=== PATIENT | female | born 1955 | race Caucasian/White ===

== ENCOUNTER 2018-09-13 11:54 | Inpatient (IN) | payer BC ==
[~2018-09-13] VITALS: Ht 167.6 cm; Wt 78.1 kg
[2018-09-13] VITALS (14 sets, daily range): BP systolic 133–154; BP diastolic 65–99
[2018-09-13] MEDS ORDERED: normal saline 1000ML IV soln ONE (12:00)
--- NOTE | 2018-09-13 12:05 | NUR ---
Dr. Armstrong at bedside to keron pt.
[2018-09-13] MEDS ORDERED: aspirin 81mg tab.chew PO ONE (12:30)
[2018-09-13 12:44] LABS: BASOPHILS % (AUTO) 0.4 % (0-1); EOSINOPHILS # (AUTO) 0.1 X10'3 (0-0.9); EOSINOPHILS % (AUTO) 0.9 % (0-6); HEMATOCRIT 44.9 % (35.0-45.0); HEMOGLOBIN 15.3 g/dl (12.0-16.0); LYMPHOCYTES # (AUTO) 2.3 X10'3 (1.1-4.8); LYMPHOCYTES % (AUTO) 20.8 % (21-51); MEAN CORPUSCULAR HEMOGLOBIN 29.6 PG (27.0-31.0); MEAN CORPUSCULAR VOLUME 86.9 FL (78-98); MEAN PLATELET VOLUME 9.7 FL (7.4-10.4); MONOCYTES # (AUTO) 0.7 X10'3 (0-0.9); MONOCYTES % (AUTO) 6.1 % (2-12); NEUTROPHILS # (AUTO) 8.1 X10'3 (1.8-7.7); NEUTROPHILS % (AUTO) 71.8 % (42-75); PLATELET COUNT 231 X10'3 (140-440); RED BLOOD COUNT 5.17 X10'6 (4.20-5.60); RED CELL DISTRIBUTION WIDTH 13.2 % (11.5-14.5); WHITE BLOOD COUNT 11.3 X10'3 (4.5-11.0)
[2018-09-13 13:00] LABS: ALBUMIN 3.5 G/DL (3.4-5.0); ANION GAP 9 (8-16); BILIRUBIN,TOTAL 0.5 MG/DL (0.1-1.0); BLOOD UREA NITROGEN 18 MG/DL (7-18); BUN/CREATININE RATIO 26.9 (6.6-38.0); CALCIUM 9.3 MG/DL (8.5-10.1); CHLORIDE 103 MMOL/L (99-107); CREATININE 0.67 MG/DL (0.40-0.90); GLUCOSE 256 MG/DL (70-104); POTASSIUM 3.6 MMOL/L (3.5-5.1); SODIUM 137 MMOL/L (135-145); TOTAL CARBON DIOXIDE 25.3 MMOL/L (24-32); eGFR 89 ML/MIN
[2018-09-13 13:01] LABS: ALANINE AMINOTRANSFERASE 13 U/L (12-78); ALKALINE PHOSPHATASE 95 IU/L (46-116); ASPARTATE AMINO TRANSFERASE 32 U/L (10-37)
[2018-09-13 13:04] LABS: ETHANOL < 0.010 GM/DL (0.0-0.010); MAGNESIUM 1.9 MG/DL (1.5-2.4)
[2018-09-13 14:38] LABS: URINE AMPHETAMINE SCREEN NEGATIVE (Neg); URINE BARBITUATE SCREEN NEGATIVE (Neg); URINE BENZODIAZEPINES SCREEN NEGATIVE (Neg); URINE CANNABINOID SCREEN POSITIVE (Neg); URINE COCAINE SCREEN NEGATIVE (Neg); URINE METHADONE SCREEN NEGATIVE (Neg); URINE OPIATE SCREEN NEGATIVE (Neg); URINE PHENCYCLIDINE SCREEN NEGATIVE (Neg)
[2018-09-13] MEDS ORDERED: heparin 25,000 UNIT/250ml bag 250 ML IV SCH (16:42)
[2018-09-13] MEDS ORDERED: heparin 10,000 units/1 ML INJ IV ONE ×2 (16:45→16:55)
[2018-09-13] MEDS ORDERED: LORazepam 2 mg/ml vial IV ONE (16:45)
[2018-09-13] MEDS ORDERED: nicotine 14mg patch - 24hr TD ONE (16:45)
[2018-09-13] MEDS ORDERED: acetaminophen 325mg tablet PO PRN (16:50)
[2018-09-13] MEDS ORDERED: morphine 2 MG/ML inj. syringe IV PRN ×2 (16:50)
[2018-09-13] MEDS ORDERED: mag hydrox/Alum hydrox/simeth 30ml oral suspension PO PRN (16:50)
[2018-09-13] MEDS ORDERED: ondansetron/PF 4mg/2ml inj IV PRN (16:50)
[2018-09-13] MEDS ORDERED: magnesium hydroxide 30ml (MOM) UD suspension PO PRN (16:50)
[2018-09-13] MEDS ORDERED: nitroGLYCERIN 0.4mg/hour patch TD ONE (16:50)
[2018-09-13] MEDS ORDERED: LORazepam 0.5 MG tablet PO PRN (17:15)
[2018-09-13] MEDS: normal saline 1000ml 1,000 ML IV SCH ×2 (17:25→22:34)
[2018-09-13] MEDS ORDERED: LIDOcaine 1% (10mg/ml)w/preservative injection 20ml MDV ONE (17:31)
[2018-09-13] MEDS ORDERED: fentaNYL/PF 50MCG/1 ML 2ML syringe ONE (17:31)
[2018-09-13] MEDS ORDERED: midazolam 2 mg/2 ml injection ONE (17:31)
[2018-09-13] MEDS ORDERED: iohexol 350 MG/1 ML 200ml bottle ONE (17:32)
[2018-09-13] MEDS ORDERED: heparin 1,000unit/ml 10ml vial 10 ML ONE (17:32)
[2018-09-13] MEDS ORDERED: ticagrelor 90mg tablet ONE (18:16)
[2018-09-13] MEDS ORDERED: HYDROcodone/acetaminophen 5mg/325mg tablet PO PRN (19:00)
[2018-09-13] MEDS ORDERED: OXAZEpam 15mg capsule PO PRN (19:00)
[2018-09-13] MEDS ORDERED: HYDROcodone/acetaminophen 10/325mg tab PO PRN (19:00)
[2018-09-13] MEDS ORDERED: proCHLORperazine 10 MG/2 ml inj IV PRN (19:00)
[2018-09-13] MEDS ORDERED: nitroGLYCERIN 0.4mg SUBLingual tab SL PRN (19:00)
--- NOTE | 2018-09-13 19:00 | NUR ---
Report received from Assistant Plant Controller RN for pt and she will be coming to room 312.
--- NOTE | 2018-09-13 19:30 | NUR ---
Pt in room 312 arrived via gurney and slide board used to transfer to bed to keep her leg straight. R groin Cath site has CDI dressing and no s/s of hematoma or bleeding. Lower ext pulses ++ bilat. VSS, no s/s of distress, and pt denies any needs at this time.
[2018-09-13] MEDS ORDERED: dextrose ORAL solution 15 GM/59 ML bottle PO PRN ×2 (19:35)
[2018-09-13] MEDS ORDERED: MESSAGE TO PHARMACY PO ONE (19:35)
[2018-09-13] MEDS ORDERED: dextrose 50%-water 50ml dispensing syringe IV PRN ×2 (19:35)
[2018-09-13] MEDS ORDERED: glucagon, human recombinant 1mg kit SUBCUT PRN (19:35)
[2018-09-13] MEDS ORDERED: insulin Lispro (HumaLOG) vial - multi-dose SQ SCH (19:35)
[2018-09-13] MEDS ORDERED: insulin glargine (Lantus) pen - multi-dose SQ SCH (21:00)
[2018-09-13] MEDS ORDERED: atorvastatin 20mg tablet PO SCH (21:00)
--- NOTE | 2018-09-13 21:00 | NUR ---
Pt refusing ACCU Checks and states I absolutely will not take any insulin. Pt states she is a "Pre diabetic" and does not want any treatment. Nurse explained why we treat high BG and that she will not need any insulin after she leaves should she need some to cover high BG while she is here. She stated understanding but still did not want any treatment.
[2018-09-13] MEDS: carVEDilol 3.125mg tablet PO SCH (22:37)
[2018-09-13] MEDS ORDERED: normal saline 1000ml 1,000 ML IV SCH (22:51)
[2018-09-14 00:30] VITALS: BP 129/66
[2018-09-14 02:30] VITALS: BP 97/62
[2018-09-14 05:53] LABS: BASOPHILS % (AUTO) 0.4 % (0-1); EOSINOPHILS # (AUTO) 0.1 X10'3 (0-0.9); EOSINOPHILS % (AUTO) 0.8 % (0-6); HEMATOCRIT 41.3 % (35.0-45.0); HEMOGLOBIN 13.9 g/dl (12.0-16.0); LYMPHOCYTES # (AUTO) 1.9 X10'3 (1.1-4.8); LYMPHOCYTES % (AUTO) 18.1 % (21-51); MEAN CORPUSCULAR HEMOGLOBIN 29.4 PG (27.0-31.0); MEAN CORPUSCULAR HGB CONC 33.5 g/dL (33.0-36.5); MEAN CORPUSCULAR VOLUME 87.8 FL (78-98); MEAN PLATELET VOLUME 9.6 FL (7.4-10.4); MONOCYTES # (AUTO) 0.8 X10'3 (0-0.9); MONOCYTES % (AUTO) 7.8 % (2-12); NEUTROPHILS # (AUTO) 7.6 X10'3 (1.8-7.7); NEUTROPHILS % (AUTO) 72.9 % (42-75); PLATELET COUNT 202 X10'3 (140-440); RED BLOOD COUNT 4.71 X10'6 (4.20-5.60); RED CELL DISTRIBUTION WIDTH 13.1 % (11.5-14.5); WHITE BLOOD COUNT 10.4 X10'3 (4.5-11.0)
[2018-09-14 06:00] VITALS: BP 125/67
[2018-09-14 06:03] LABS: ANION GAP 7 (8-16); BLOOD UREA NITROGEN 15 MG/DL (7-18); CHLORIDE 105 MMOL/L (99-107); CREATININE 0.71 MG/DL (0.40-0.90); GLUCOSE 133 MG/DL (70-104); POTASSIUM 4.1 MMOL/L (3.5-5.1); SODIUM 138 MMOL/L (135-145); TOTAL CARBON DIOXIDE 26.4 MMOL/L (24-32)
[2018-09-14 06:04] LABS: ALBUMIN 3.1 G/DL (3.4-5.0); BUN/CREATININE RATIO 21.1 (6.6-38.0); CALCIUM 8.4 MG/DL (8.5-10.1); eGFR 84 ML/MIN
--- NOTE | 2018-09-14 06:18 | NUR ---
Problems reprioritized. Patient report given, questions answered & plan of care reviewed with []. Problems reprioritized. Patient report given, questions answered & plan of care reviewed with Sarah Mantilla.
[2018-09-14 07:19] LABS: HEMOGLOBIN A1C 6.5 % (4.5-6.2)
[2018-09-14] MEDS ORDERED: aspirin 81mg tablet.DR PO SCH (08:00)
[2018-09-14] MEDS ORDERED: ticagrelor 90mg tablet PO SCH (08:00)
[2018-09-14] MEDS: carVEDilol 3.125mg tablet PO SCH (08:00)
[2018-09-14] MEDS ORDERED: atorvastatin 20mg tablet PO SCH (08:00)
[2018-09-14 08:34] VITALS: BP 98/52
[2018-09-14 11:00] VITALS: BP 123/68
[2018-09-14] MEDS ORDERED: ASPI-1071 PO (11:39)
[2018-09-14] MEDS ORDERED: COR3.125T PO (11:39)
[2018-09-14] MEDS ORDERED: ATOR20TA66 PO (11:39)
[2018-09-14] MEDS ORDERED: TICA90TA PO (11:39)
[2018-09-14] MEDS ORDERED: NICO-631 TD (11:39)
--- NOTE | 2018-09-14 11:45 | NUR ---
PATIENT WILL CALL FOR F/U APPT WITH DR. STAFFORD HERSELF. PHONE NUMBER PROVIDED WITH DISCHARGE INSTRUCTIONS Addendum: 09/14/18 at 1146 by Kaitlin Bishop RN Amended: Links added.
--- NOTE | 2018-09-14 12:47 | NUR ---
discharge education provided; all questions answered.
--- NOTE | 2018-09-14 13:33 | NUR ---
no appointment, patient states DM is controlled with diet and exercise Addendum: 09/14/18 at 1340 by Kaitlin Bishop RN Amended: Links added.
--- NOTE | 2018-09-14 13:40 | NUR ---
DR RAUSCH CALLED. INFORMED CAROTID US NEGATIVE. PATIENT OK TO DC HOME.
--- NOTE | 2018-09-14 13:48 | NUR ---
IVs d/c'd; cannulas intact. pt removed from cardiac monitoring. pt declined wheel chair and ambulated downstairs with all belongings.
== END 2018-09-14 14:04 | disposition home or self-care (01) | DRG 247 ==
LOC: ER 11:55 → EDBEDREQTM 20:11 → EDBEDREQ 20:11 → EDBEDREQSVC 20:11 → PCU 3S 20:31 → MED 3N 20:40
PROVIDERS: ADMIT Family Medicine; ATTEND Family Medicine
PROC: 027035Z Dilation of Coronary Artery, One Artery with Two Drug-eluting Intraluminal Devices, Percutaneous Approach (ICD-10-PCS; principal; 2018-09-13)
PROC: 4A023N7 Measurement of Cardiac Sampling and Pressure, Left Heart, Percutaneous Approach (ICD-10-PCS; 2018-09-13)
PROC: B2111ZZ Fluoroscopy of Multiple Coronary Arteries using Low Osmolar Contrast (ICD-10-PCS; 2018-09-13)
PROC: B2151ZZ Fluoroscopy of Left Heart using Low Osmolar Contrast (ICD-10-PCS; 2018-09-13)
PROC: B41F1ZZ Fluoroscopy of Right Lower Extremity Arteries using Low Osmolar Contrast (ICD-10-PCS; 2018-09-13)
DX: I21.4 Non-ST elevation (NSTEMI) myocardial infarction (principal); F12.90 Cannabis use, unspecified, uncomplicated; E78.5 Hyperlipidemia, unspecified; F41.9 Anxiety disorder, unspecified; R09.89 Other specified symptoms and signs involving the circulatory and respiratory systems; I25.10 Atherosclerotic heart disease of native coronary artery without angina pectoris; F17.218 Nicotine dependence, cigarettes, with other nicotine-induced disorders; E11.9 Type 2 diabetes mellitus without complications; Z88.2 Allergy status to sulfonamides; Z79.82 Long term (current) use of aspirin; Z79.899 Other long term (current) drug therapy; Z71.6 Tobacco abuse counseling
CPT/HCPCS: 93306; 93458; 96365; 96375; 99291; C9600; 36415; 71045; 80048; 80053; 80305; 80320; 82948; 83036; 83735; 83880; 84484; 85025; 87070; 93005; 93880; 99152; 99153; A6257; C1769; C1874; G0378; J1644; J1815; J2001; J2060; J2250; J3010; J7030; Q9967